=== PATIENT | female | born 1970 | race Caucasian/White ===

== ENCOUNTER → 2018-09-21 | Emergency (ER) | payer OTHER ==
[~2018-09-21] VITALS: Ht 167.6 cm; Wt 99.8 kg
[~2018-09-21] MED LIST: ASPIRIN81 MG; VITAMIN B-COMP1 EAC1
== END | disposition home or self-care (01) ==
LOC: ER 14:56
DX: R35.8 Other polyuria (principal)

== ENCOUNTER 2022-06-04 10:41 | Outpatient (CLI) | payer OTHER | END 2022-06-04 10:43 | disposition home or self-care (01) | LOC: SONOGRAMA 10:41 | PROVIDERS: ATTEND Pathology Anatomic Pathology & Clinical Pathology | DX: E04.2 Nontoxic multinodular goiter (principal); E07.9 Disorder of thyroid, unspecified; D34 Benign neoplasm of thyroid gland; E04.9 Nontoxic goiter, unspecified ==

== ENCOUNTER 2023-01-31 09:42 | Outpatient (CLI) | payer OTHER | END 2023-01-31 09:47 | disposition home or self-care (01) | LOC: SONOGRAMA 09:42 | PROVIDERS: ATTEND Pathology Anatomic Pathology & Clinical Pathology | DX: D44.0 Neoplasm of uncertain behavior of thyroid gland (principal); D34 Benign neoplasm of thyroid gland; E04.9 Nontoxic goiter, unspecified; E07.9 Disorder of thyroid, unspecified ==

== ENCOUNTER 2025-01-11 09:48 | Outpatient (CLI) | payer OTHER | END 2025-01-11 10:02 | disposition home or self-care (01) | LOC: SONOGRAMA 09:48 | PROVIDERS: ATTEND Pathology Anatomic Pathology | DX: D34 Benign neoplasm of thyroid gland (principal); E07.89 Other specified disorders of thyroid; E04.2 Nontoxic multinodular goiter ==